=== PATIENT | female | born 1990 | race Asian ===

== ENCOUNTER 2019-07-26 07:59 | Day surgery (SDC) | payer OTHER ==
[~2019-07-26 07:59] MED LIST: ACETAMINOPHEN 325 MG TABLET PO PRN; CEFAZOLIN SODIUM 1 GM in DEXTROSE 5%-WATER 50 ML IV PRN; DEXAMETHASONE SOD PHOSPHATE INJ 4 MG/1 ML VIAL ONE; FENTANYL CITRATE INJ/PF 100 MCG/2 ML AMPUL ONE; KETOROLAC TROMETHAMINE 60 MG/2 ML SDV ONE; LACTATED RINGERS 1000 ML IV PRN; LIDOCAINE 1%/EPINEPHRINE INJ 20 ML VIAL ONE; MICROFIBRILLAR COLLAGEN 1 GM PACK ONE; MIDAZOLAM 2 MG/2 ML INJ ONE; ONDANSETRON HCL INJ/PF 4 MG/2 ML SDV ONE; PROPOFOL INJ 200 MG/20 ML VIAL IV ONE
[2019-07-26 08:48] LABS: HEMATOCRIT 40.4 % (36.0-47.0); HEMOGLOBIN 13.7 g/dL (12.0-15.5); MEAN CORPUSCULAR HEMOGLOBIN 30.5 pg (27.0-33.4); MEAN CORPUSCULAR HGB CONC 33.8 g/dL (32.0-36.0); MEAN CORPUSCULAR VOLUME 90 fl (80-97); PLATELET COUNT 230 10^3/uL (150-450); RED BLOOD COUNT 4.48 10^6/uL (3.72-5.28); WHITE BLOOD COUNT 4.7 10^3/uL (4.0-10.5)
[2019-07-26] MEDS ORDERED: PROPOFOL INJ 200 MG/20 ML VIAL IV ONE (08:56)
[2019-07-26] MEDS ORDERED: SCOPOLAMINE HYDROBROMIDE 1.5 MG PATCH.TD72 ONE (09:25)
[2019-07-26] MEDS ORDERED: SCOPOLAMINE HYDROBROMIDE 1.5 MG PATCH.TD72 TD PRN (09:29)
[2019-07-26] MEDS ORDERED: MEPERIDINE HCL/PF INJ 25 MG/1 ML DISP.SYRIN IV PRN (10:28)
[2019-07-26] MEDS ORDERED: DIPHENHYDRAMINE HCL 50 MG/ML VIAL IV PRN (10:28)
[2019-07-26] MEDS ORDERED: OXYCODONE-ACETAMINOPHEN 5-325 MG TABLET PO PRN ×3 (10:28→11:07)
[2019-07-26] MEDS ORDERED: ONDANSETRON HCL INJ/PF 4 MG/2 ML SDV IV PRN (10:28)
[2019-07-26] MEDS ORDERED: FENTANYL CITRATE INJ/PF 100 MCG/2 ML AMPUL IV PRN ×3 (10:28)
[2019-07-26] MEDS ORDERED: PROMETHAZINE HCL INJ 25 MG/1 ML VIAL IV PRN (10:28)
[2019-07-26] MEDS ORDERED: MORPHINE SULFATE 10 MG/ML INJ IV PRN (10:28)
--- NOTE | 2019-07-26 11:07 | Discharge Summary ---
Discharge Summary (SDC) - Discharge Final Diagnosis: Right breast mass Date of Surgery: 07/26/19 Discharge Date: 07/26/19 Condition: Good Treatment or Instructions: WOUND CARE: 1) Do not get surgical site wet for 48 hours. In 48 hours, you may shower, leaving steri strips intact. Warm water and soap may wash over wound, do not scrub, pat dry. You may cover the wound with gauze and tape if it is more comfortable. 2) Wear supportive bra. PAIN MANAGEMENT: 1) You may take Toradol 10mg one pill by mouth every six hours as needed for pain. Do not take additional NSAIDs (ibuprofen, aleve, goodies powder) with Tor adol. FOLLOW UP: 1) You may follow up at [facility] in 03-[address] Shafer. Call clinic sooner with questions/concerns. Monitor for signs of infection: redness, swelling, increased pain, fever. Prescriptions: Ketorolac Tromethamine [Toradol 10 mg Tablet] 10 mg PO Q6HP PRN #20 tablet PRN Reason: Referrals: ENOC SALDIVAR PA-C [Primary Care Provider] - Discharge Diet: As Tolerated Discharge Activity: Activity As Tolerated, Balance Activity w/Rest, Walk Frequently Report the Following to Your Physician Immediately: Increase in Pain, Fever over 101 Degrees, Unusual Bleeding, Redness, Swelling, Warmth, Increased Soreness, Drainage-Foul Smelling
--- NOTE | 2019-07-26 11:12 | Operative Report ---
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 Shafer. She was then taken the main operating room where LMAC anesthesia was induced. Right arm was abducted, right breast prepped and draped in sterile fashion. Surgical plan surgical timeout were conducted. Real-time ultrasound was used as a guide to direct the dissection. The variable frequency linear transducer was placed in the right breast. Findings were significant for hypoechoic less than 2 cm mass above the pectoralis muscle. The skin was anesthetized just cephalad to the mass. 1% lidocaine with epinephrine was used. A small 2 cm incision was made in a curvilinear fashion over the tail of Starr. Using ultrasound real-time as a guide, the mass and a very small rim of normal parenchyma was excised from the tail of Starr area. Electrocautery was used for the entire dissection. The specimen was removed from the right breast, ultrasounded in fluid, and confirmed to contain the target tissue. The target tissue was bivalved on the back table and found to contain the mass consistent with fibroadenoma. The specimen was sent fresh to pathology Wound was checked for bleeding there was none. Sponge and needle counts are correct. Wound was closed with 3-0 Vicryl, benzoin and Steri-Strips. Patient tolerated procedure well, taken recovery in stable condition. The physician content assistant, Ms. Buckner, provided assistance during this case by: Assisting with port insertion, retracting tissue, instillation of local anesthesia and closure of skin incisions.
[2019-07-26 13:37] VITALS: BP 107/69
== END 2019-07-26 13:05 | disposition home or self-care (01) ==
LOC: OROUT 07:59
PROVIDERS: ATTEND Surgery
DX: D24.1 Benign neoplasm of right breast (principal); N60.21 Fibroadenosis of right breast
CPT/HCPCS: 36415; 84703; 85027; 88305 ×2; 19120; J2250; J0690; J1100; J1885; J3010; J3490; J2405; J7060; J2704; 400